=== PATIENT | female | born 2000 | race Caucasian/White ===

== ENCOUNTER 2019-02-05 05:25 | Inpatient (IN) | payer OTHER ==
[~2019-02-05] VITALS: Ht 167.6 cm; Wt 76.0 kg
[~2019-02-05 05:25] MED LIST: PRENATAL VITAM1 EACH PO; TUMS200 MG PO
--- NOTE | 2019-02-05 11:29 | PR ---
[facility] [address] [facility] [place], [place] [address] Signed Progress Notes IP Datetime Report Generated by CPN: 02/05/2019 11:29 PROGRESS NOTES: [id number] Impression: Normal progression of labor Procedures: Artificial ROM Plan: Continue present management; Anticipate Vaginal Delivery VITAL SIGNS: [id number] Vital Signs: Reviewed; Within Normal Limits EXAM: [id number] Dilatation: 5.5 Effacement: 90 Station: -2 Uterine Contractions: irregular MEMBRANES: [id number] Membrane Status: Ruptured Amniotic Fluid Color: Clear ROM Note: AROm without difficulty, with small amount clear fluid Comments: Slowly progresisng, with BOW palpable still, so AROM. Patient tolerating contracitons well. Fetus A: [id number] FHR Baseline: 130 Variability: Moderate 6-25bpm Accelerations: 15X15 Decelerations: None Presentation: Vertex Fetus B: [id number] Signing Physician: Esteban Myles MD Copies: ~ *Electronically Signed* 02/05/19 1129 ESTEBAN MYLES MD PATIENT NAME: ARMIDA EGANH LISBET PROGRESS NOTE DATE OF : [birth year] PHYSICIAN: ESTEBAN MYLES MD [facility] #: [id number] REPORT IS CONFIDENTIAL AND NOT TO BE RELEASED WITHOUT AUTHORIZATION
--- NOTE | 2019-02-06 10:22 | PR ---
[facility] [address] [facility] [place] [address] Signed PP Progress Notes Datetime Report Generated by CPN: 02/06/2019 10:22 SUBJECTIVE: [id number] Pain: Within normal limits Nausea/Vomiting: Denies Vital Signs: [id number] Vital Signs: Reviewed; Within Normal Limits Notable Details: PP Hgb/Hct = 8.2/24.0 EXAM: [id number] Abdomen/Uterus: Normal Lochia: Normal Extremities: Normal IMPRESSION/PLAN/PROCEDURES: [id number] Impression: Normal progression Other Impression: PP Anemia Plan: Continue present management Procedures: None Progress Notes: Doing well, without complaint Signing Physician: Ne Myles MD Copies: ~ *Electronically Signed* 02/06/19 1022 NE MYLES MD PATIENT NAME: CLINTON EGAN PROGRESS NOTE DATE OF : 98 PHYSICIAN: NE MYLES MD RPT #: [id number] REPORT IS CONFIDENTIAL AND NOT TO BE RELEASED WITHOUT AUTHORIZATION
--- NOTE | 2019-02-07 12:09 | PR ---
[facility] [address] [facility] [place], [place] [address] Signed PP Progress Notes Datetime Report Generated by CPN: 02/07/2019 12:09 SUBJECTIVE: [id number] Pain: Within normal limits Nausea/Vomiting: Denies Vital Signs: [id number] Vital Signs: Reviewed; Within Normal Limits Notable Details: PP Hgb/Hct = 8.2/24.0 EXAM: [id number] Abdomen/Uterus: Normal Lochia: Normal Extremities: Normal IMPRESSION/PLAN/PROCEDURES: [id number] Impression: Normal progression Other Impression: PP Anemia Plan: Discharge Other Plans: "Boarder" status Procedures: None Progress Notes: Doing well, without complalint, ready to go home, but baby staying 1 more day Signing Physician: Ne Myles MD Copies: ~ *Electronically Signed* 02/07/19 1209 NE MYLES MD PATIENT NAME: CLINTON EGAN PROGRESS NOTE DATE OF : 98 PHYSICIAN: NE MYLES MD RPT #: [id number] REPORT IS CONFIDENTIAL AND NOT TO BE RELEASED WITHOUT AUTHORIZATION
== END 2019-02-07 15:15 | disposition home or self-care (01) | DRG 806 ==
LOC: FBCO 05:25 → FBC 05:48
PROVIDERS: ADMIT General Practice
PROC: 10E0XZZ Delivery of Products of Conception, External Approach (ICD-10-PCS; principal; 2019-02-05)
PROC: 0HQ9XZZ Repair Perineum Skin, External Approach (ICD-10-PCS; 2019-02-05)
PROC: 0UQMXZZ Repair Vulva, External Approach (ICD-10-PCS; 2019-02-05)
DX: O69.1XX0 Labor and delivery complicated by cord around neck, with compression, not applicable or unspecified (principal); O99.324 Drug use complicating childbirth; Z37.0 Single live birth; Z3A.37 37 weeks gestation of pregnancy; O90.81 Anemia of the puerperium; D64.9 Anemia, unspecified; O70.0 First degree perineal laceration during delivery; F12.90 Cannabis use, unspecified, uncomplicated
CPT/HCPCS: 36415; 85027; J2590; J7120

== ENCOUNTER 2021-04-20 18:06 | Inpatient (IN) | payer OTHER ==
[~2021-04-20] VITALS: Ht 162.6 cm; Wt 79.8 kg
--- NOTE | 2021-04-20 18:37 | NUR ---
RAPID SWAB COLLECTED
--- NOTE | 2021-04-21 12:55 | PR ---
[facility] [address] [facility] [place] [address] Signed PP Progress Notes Datetime Report Generated by CPN: 04/21/2021 12:55 SUBJECTIVE: [id number] Pain: Within Normal Limits Nausea/Vomiting: Denies Vital Signs: [id number] Vital Signs: Reviewed; Within Normal Limits Abdomen/Uterus: Normal Lochia: Normal Extremities: Normal Exam Comments: PP Hgb/Hct = 10.8/32.7 IMPRESSION/PLAN/PROCEDURES: [id number] Impression: Normal Progression Plan: Continue Present Management Procedures: None Progress Notes: Doing well, without complaint Signing Physician: Ne Myles MD Copies: ~ *Electronically Signed* 04/21/21 1255 NE MYLES MD PATIENT NAME: CLINTON EGAN PROGRESS NOTE DATE OF : 98 PHYSICIAN: NE MYLES MD RPT #: [id number] REPORT IS CONFIDENTIAL AND NOT TO BE RELEASED WITHOUT AUTHORIZATION
--- NOTE | 2021-04-22 09:47 | PR ---
[facility] [address] [facility] [place] [address] Signed PP Progress Notes Datetime Report Generated by CPN: 04/22/2021 09:47 SUBJECTIVE: [id number] Pain: Within Normal Limits Nausea/Vomiting: Denies Vital Signs: [id number] Vital Signs: Reviewed; Within Normal Limits Abdomen/Uterus: Normal Lochia: Normal Extremities: Normal Exam Comments: PP Hgb/Hct = 10.8/32.7 IMPRESSION/PLAN/PROCEDURES: [id number] Impression: Normal Progression Plan: Discharge Procedures: None Progress Notes: Doing well, without complaints, ready to go home. Signing Physician: Ne Myles MD Copies: ~ *Electronically Signed* 04/22/21 0947 NE MYLES MD PATIENT NAME: CLINTON EGAN PROGRESS NOTE DATE OF : 98 PHYSICIAN: NE MYLES MD RPT #: [id number] REPORT IS CONFIDENTIAL AND NOT TO BE RELEASED WITHOUT AUTHORIZATION
== END 2021-04-22 11:25 | disposition home or self-care (01) | DRG 807 ==
LOC: FBCO 18:06 → FBC 18:20
PROVIDERS: ADMIT Obstetrics & Gynecology; ATTEND Obstetrics & Gynecology
PROC: 10E0XZZ Delivery of Products of Conception, External Approach (ICD-10-PCS; principal; 2021-04-20)
PROC: 10907ZC Drainage of Amniotic Fluid, Therapeutic from Products of Conception, Via Natural or Artificial Opening (ICD-10-PCS; 2021-04-20)
DX: O69.81X0 Labor and delivery complicated by cord around neck, without compression, not applicable or unspecified (principal); Z37.0 Single live birth; Z3A.38 38 weeks gestation of pregnancy; Z20.822 Contact with and (suspected) exposure to COVID-19
CPT/HCPCS: 85027; A9270; J2590; U0003